=== PATIENT | female | born 1985 | race Asian ===

== ENCOUNTER 2017-07-03 17:02 | Outpatient (CLI) | payer OTHER | END 2017-07-03 20:28 | disposition home or self-care (01) | LOC: MUS 17:02 | PROVIDERS: ATTEND Obstetrics & Gynecology | DX: Z34.82 Encounter for supervision of other normal pregnancy, second trimester (principal); Z3A.14 14 weeks gestation of pregnancy | CPT/HCPCS: 76801 ==